=== PATIENT | male | born 1995 | race Two or more races ===

== ENCOUNTER 2019-12-13 11:49 | Emergency (ER) | payer BC ==
[~2019-12-13] VITALS: Ht 177.8 cm; Wt 65.0 kg
[~2019-12-13 11:49] MED LIST: CIPR500T87 PO; OXYC-302 PO
[2019-12-13] MEDS ORDERED: MORPHINE SULFATE 4 MG/ML, 1ML ONE ×2 (11:56→12:31)
[2019-12-13] MEDS ORDERED: ONDANSETRON 2MG/ML, 2ML ONE (11:56)
[2019-12-13] MEDS ORDERED: KETOROLAC 30 MG/1 ML ONE (11:57)
[2019-12-13] MEDS ORDERED: ONDANSETRON 2MG/ML, 2ML IVPush ONE (12:00)
[2019-12-13] MEDS ORDERED: PLEASE ENTER HEIGHT AND WEIGHT MC SCH (12:00)
[2019-12-13] MEDS ORDERED: KETOROLAC 30 MG/1 ML IVPush ONE (12:00)
[2019-12-13] MEDS ORDERED: SODIUM CHLORIDE FLUSH 10ML SYR IVF ONE (12:00)
[2019-12-13] MEDS: MORPHINE SULFATE 4 MG/ML, 1ML IVPush PRN ×2 (12:07→12:32)
--- NOTE | 2019-12-13 12:16 | NUR ---
PT CAME IN CO OF LEFT FLANK PAIN X 2 DAYS. PT VOMITTED ONCE THIS MORNING. PT STATES THAT HE HAS A HX OF KIDNEY STONES. PT HAS BEEN MEDICATED PER SEP. LABS SENT. IV STARTED. US IN WITH PT AT THIS TIME
[2019-12-13 12:23] LABS: MICROSCOPIC AUTO
[2019-12-13 12:29] LABS: ALBUMIN 4.4 g/dL (3.4-5.0); ANION GAP 6 mmol/L (5-15); CALCIUM 9.6 mg/dL (8.5-10.1); CHLORIDE 105 mmol/L (98-107); CREATININE 0.94 mg/dL (0.7-1.3)
[2019-12-13 12:34] VITALS: BP 134/80
--- NOTE | 2019-12-13 12:34 | NUR ---
PT MEDICATED PER MAR.
--- NOTE | 2019-12-13 13:11 | NUR ---
Awaiting md for recheck of patient.
--- NOTE | 2019-12-13 13:58 | NUR ---
Patient/Caregiver given discharge instructions and they have confirmed that they understand the instructions. Patient ambulatory with steady gait.
== END 2019-12-13 14:00 | disposition home or self-care (01) ==
LOC: ED 12:52
DX: N13.2 Hydronephrosis with renal and ureteral calculous obstruction (principal); R11.2 Nausea with vomiting, unspecified
CPT/HCPCS: 36415; 76770; 80048; 81001; 82040; 96374; 96375; 99284; J1885; J2270; J2405

== ENCOUNTER 2020-02-15 04:21 | Day surgery (SDC) | payer BC ==
[~2020-02-15] VITALS: Ht 177.8 cm; Wt 76.3 kg
--- NOTE | 2020-02-15 04:41 | NUR ---
assessment made. chart up for MD to see. IV placed. blood drawn. actively vomiting at this time.
--- NOTE | 2020-02-15 04:44 | NUR ---
PA at bedside.
[2020-02-15] MEDS ORDERED: ONDANSETRON 2MG/ML, 2ML ONE ×3 (04:50→14:35)
[2020-02-15] MEDS ORDERED: KETOROLAC 30 MG/1 ML ONE ×2 (04:50→14:37)
[2020-02-15] MEDS ORDERED: KETOROLAC 30 MG/1 ML IVPush ONE (05:00)
[2020-02-15] MEDS ORDERED: SODIUM CHLORIDE FLUSH 10ML SYR IVF ONE (05:00)
[2020-02-15] MEDS ORDERED: ONDANSETRON 2MG/ML, 2ML IVPush ONE ×2 (05:00→11:00)
[2020-02-15 05:01] LABS: MICROSCOPIC AUTO
--- NOTE | 2020-02-15 05:02 | NUR ---
patient medicated for pain. Ultrasound at bedside.
[2020-02-15] MEDS ORDERED: HYDROmorphone 1 MG/ML, 1ML INJ ONE ×2 (05:07→07:49)
[2020-02-15 05:10] LABS: BASOPHILS # (AUTO) 0.04 x10^3/uL (0-0.1); BASOPHILS % (AUTO) 0 % (0-1); EOSINOPHILS % (AUTO) 1 % (1-7); LYMPHOCYTES # (AUTO) 1.74 x10^3/uL (1-3.4); LYMPHOCYTES % (AUTO) 14 % (22-44); MD NO; MEAN CORPUSCULAR HEMOGLOBIN 30.3 pg (27.5-34.5); MEAN PLATELET VOLUME 9.6 fL (7.4-10.4); MONOCYTES # (AUTO) 0.89 x10^3/uL (0.2-0.8); MONOCYTES % (AUTO) 7 % (2-9); NEUTROPHILS # (AUTO) 9.89 x10^3/uL (1.8-6.8); NEUTROPHILS % (AUTO) 78 % (42-75); PLATELET COUNT 249 x10^3/uL (130-400); RED BLOOD COUNT 5.62 x10^6/uL (4.38-5.82); RED CELL DISTRIBUTION WIDTH 13.4 % (9.4-14.8)
--- NOTE | 2020-02-15 05:14 | NUR ---
patient re-medicated for pain.
[2020-02-15 05:23] LABS: ALANINE AMINOTRANSFERASE 35 U/L (12-78); ALBUMIN 4.4 g/dL (3.4-5.0); ANION GAP 7 mmol/L (5-15); CHLORIDE 107 mmol/L (98-107)
[2020-02-15 05:25] LABS: ALKALINE PHOSPHATASE 72 U/L (45-117); BILIRUBIN,TOTAL 0.7 mg/dL (0.2-1.0); CALCIUM 9.2 mg/dL (8.5-10.1); CREATININE 1.07 mg/dL (0.7-1.3); TOTAL PROTEIN 8.3 g/dL (6.4-8.2)
[2020-02-15] MEDS ORDERED: HYDROmorphone 1 MG/ML, 1ML INJ IV ONE (05:30)
--- NOTE | 2020-02-15 05:57 | NUR ---
patient to X ray.
--- NOTE | 2020-02-15 06:07 | NUR ---
back from X ray. patient states pain 09/05. tolerable.
--- NOTE | 2020-02-15 06:25 | NUR ---
patient to CT scan.
--- NOTE | 2020-02-15 06:35 | NUR ---
back from CT scan. awaiting result.
--- NOTE | 2020-02-15 06:56 | NUR ---
report to ERIC Nolasco.
--- NOTE | 2020-02-15 07:16 | NUR ---
PT IS RESTING IN [facility]. VSS. NAD.
[2020-02-15] MEDS ORDERED: NS + 20MEQ KCL 1,000 ML IV ONE (07:49)
[2020-02-15] MEDS ORDERED: NS + 20MEQ KCL 1,000 ML IV SCH (08:00)
[2020-02-15] MEDS ORDERED: HYDROmorphone 2 MG/ML, 1ML IVPush PRN ×2 (08:00→09:30)
--- NOTE | 2020-02-15 08:54 | NUR ---
THROUGHPUT: REPORT GIVEN TO PRE-OP TANIKA
[2020-02-15] MEDS ORDERED: LORazepam 0.5MG TABLET PO PRN (09:30)
[2020-02-15] MEDS ORDERED: BISACODYL 10 MG SUPP PR PRN (09:30)
[2020-02-15] MEDS ORDERED: LACTATED RINGERS 1,000 ML IV SCH (09:30)
[2020-02-15] MEDS ORDERED: ACETAMINOPHEN 325 MG TABLET PO PRN ×2 (09:30→15:00)
[2020-02-15] MEDS ORDERED: ONDANSETRON 2MG/ML, 2ML IVPush PRN ×2 (09:30→15:00)
[2020-02-15] MEDS ORDERED: HYDROcodone/APAP 5/325 TABLET PO PRN (09:30)
[2020-02-15] MEDS ORDERED: CEFTRIAXONE PMX 1GM/50ML 50 ML IV SCH (09:30)
[2020-02-15] MEDS ORDERED: METHOCARBAMOL 500 MG TABLET PO PRN (09:30)
[2020-02-15] MEDS ORDERED: ONDANSETRON ODT 4 MG PO PRN (09:30)
[2020-02-15 09:38] VITALS: BP 125/68
--- NOTE | 2020-02-15 09:39 | NUR ---
PT RESTING IN [facility]. VSS. NAD
[2020-02-15] MEDS ORDERED: CEFTRIAXONE PMX 1GM/50ML 50 ML ONE (10:48)
[2020-02-15] MEDS ORDERED: CHLORHEXIDINE 15 ML UDC MM ONE (12:30)
[2020-02-15] MEDS ORDERED: morphine SULFATE 10 MG/ML, 1ML ONE (12:53)
[2020-02-15] MEDS ORDERED: ONDANSETRON 2MG/ML, 2ML IVPush STA (12:58)
[2020-02-15] MEDS ORDERED: MORPHINE SULFATE 4 MG/ML, 1ML IVPush ONE (13:00)
[2020-02-15] MEDS ORDERED: MIDAZOLAM 1 MG/ML, 2ML ONE (13:54)
[2020-02-15] MEDS ORDERED: FENTANYL PF 250 MCG/5ML ONE (13:58)
[2020-02-15] MEDS ORDERED: DEXAMETHASONE 4 MG/ML, 1ML ONE ×2 (14:29)
[2020-02-15] MEDS ORDERED: PROPOFOL 10 MG/ML, 20ML ONE (14:34)
[2020-02-15] MEDS ORDERED: OXYcodone 5 MG/5 ML ORAL.SOL UDC PO PRN (15:00)
[2020-02-15] MEDS ORDERED: METOCLOPRAMIDE 5 MG/ML, 2ML IVPush PRN (15:00)
[2020-02-15] MEDS ORDERED: FENTANYL PF 100 MCG/2ML IV PRN (15:00)
[2020-02-15] MEDS ORDERED: HYDROmorphone 1 MG/ML, 1ML INJ IVPush PRN (15:00)
[2020-02-15] MEDS ORDERED: PROMETHAZINE 25 MG/ML, 1ML IVPush PRN (15:00)
[2020-02-15] MEDS ORDERED: MEPERIDINE/PF 25MG/0.5ML IVPush PRN (15:00)
[2020-02-16] MEDS ORDERED: SENNA/DOCUSATE TABLET PO SCH (09:00)
== END 2020-02-15 22:58 | disposition home or self-care (01) ==
LOC: ED 06:22 → OUT 06:23 → EDIP 07:47 → UNDOADMIN 07:47 → EDSTATUS 08:52 → INTOOBSV 09:21 → EDIP 09:21 → OBSVTOIN 09:21 → UNDOADMOB 09:21 → ED 17:10 → OUT 22:58
PROVIDERS: ATTEND Internal Medicine
DX: N13.2 Hydronephrosis with renal and ureteral calculous obstruction (principal); Z11.59 Encounter for screening for other viral diseases; N17.9 Acute kidney failure, unspecified; Z79.891 Long term (current) use of opiate analgesic; Z79.899 Other long term (current) drug therapy; Z87.442 Personal history of urinary calculi; Z91.048 Other nonmedicinal substance allergy status; Z82.49 Family history of ischemic heart disease and other diseases of the circulatory system
CPT/HCPCS: 36415; 52356; 74018; 74176; 76770; 80053; 81001; 82360; 85025; 87635; 88300; 96374; 96375; 96376; 99285; C1769; C2617; J1100; J1170; J1885; J2250; J2270; J2405; J2704; J3010; J3480; J7120; 76000; G0378